=== PATIENT | male | born 1995 | race Two or more races ===

== ENCOUNTER 2023-10-28 17:57 | Emergency (ER) | payer SELFPAY ==
[~2023-10-28] VITALS: Ht 170.2 cm; Wt 69.4 kg
[2023-10-28] MEDS ORDERED: NALO4SPR BNOSTRILS (18:46)
[2023-10-28 19:07] VITALS: BP 128/78; TEMP 97.9; O2SAT 99
== END 2023-10-28 19:08 | disposition left against medical advice (07) ==
LOC: ER 17:57
DX: T40.411A Poisoning by fentanyl or fentanyl analogs, accidental (unintentional), initial encounter (principal); F19.10 Other psychoactive substance abuse, uncomplicated; Y92.89 Other specified places as the place of occurrence of the external cause
CPT/HCPCS: 98960